=== PATIENT | female | born 1965 | race Caucasian/White ===

== ENCOUNTER 2020-02-11 06:34 | Inpatient (IN) ==
[2020-02-11 07:22] LABS: Basophils % 0.1 %; Eosinophils % 0.1 %; Hematocrit 36.9 % (35.3-44.9); Hemoglobin 12.3 g/dL (11.5-15.4); Immature Granulocytes % 0.4 % (0-4); Lymphocytes # 1.3 K/mcL (0.6-4.6); Lymphocytes % 16.1 %; Mean Corpuscular HGB Conc 33.3 g/dL (31.6-35.5); Mean Corpuscular Hemoglobin 27.8 pg (28.0-33.3); Mean Corpuscular Volume 83.3 fL (83.0-100.0); Mean Platelet Volume 9.7 fL (9.4-12.4); Monocytes # 0.4 K/mcL (0.0-1.3); Monocytes % 4.3 %; Neutrophils # 6.4 K/mcL (1.6-8.9); Platelet Count 241 K/mcL (140-400); Red Blood Count 4.43 M/mcL (3.82-4.97); Red Cell Distribution Width 13.5 % (11.5-14.5); White Blood Count 8.1 K/mcL (4.3-11.1)
[2020-02-11 07:34] LABS: Bilirubin,Urine Negative (Negative); Blood,Urine Negative (Negative); Clarity,Urine Clear (Clear); Color,Urine Yellow (Yellow); Glucose,Urine (UA) Normal (Normal); Ketones,Urine Negative (Negative); Leukocyte Esterase,Urine Negative (Negative); Nitrite,Urine Negative (Negative); Protein,Urine 30 mg/dL (Neg-Trace); Specific Gravity,Urine >= 1.030 (1.010-1.025); Urobilinogen,Urine Normal (Normal)
[2020-02-11 07:36] LABS: Amphetamine Screen,Urine Positive ng/mL (Cutoff=1000); Barbiturate Screen,Urine Negative ng/mL (Cutoff=200); Benzodiazepines Screen,Urine Negative ng/mL (Cutoff=200); Cannabinoid Screen,Urine Positive ng/mL (Cutoff = 50); Cocaine Screen,Urine Negative ng/mL (Cutoff= 300); Opiate Screen,Urine Negative ng/mL (Cutoff=300); Phencyclidine Screen,Urine Negative ng/mL (Cutoff=25)
[2020-02-11 07:37] LABS: Amorphous Sediment,Urine Few per hpf (Few)
[2020-02-11 08:18] LABS: Acetaminophen < 10 mcg/mL (10-20); BUN/Creatinine Ratio 18 (6-26); Blood Urea Nitrogen 16 mg/dL (6-20); Calcium 9.2 mg/dL (8.6-10.3); Carbon Dioxide 24 mEq/L (23-29); Chloride 109 mEq/L (98-107); Ethanol < 10 mg/dL (Less than 10); Glucose 78 mg/dL (70-105); Osmolality,Calculated 278 (280-300); Potassium 3.4 mEq/L (3.5-5.1); Salicylate < 2.5 mg/dL (15.0-30.0); Sodium 134 mEq/L (136-145); Thyroid Stimulating Hormone 3.027 mcIU/mL (0.340-5.600); eGFR For African Americans > 60 (> 60); eGFR For Non-African Americans > 60 (> 60)
[2020-02-11] MEDS ORDERED: haloperidoL 5 MG TABLET PO ONE (10:59)
[2020-02-11] MEDS ORDERED: MOM Conc 10 ML UD.LIQ PO PRN (12:41)
[2020-02-11] MEDS ORDERED: Haloperidol Lactate 5 MG/ML VIAL IM PRN (12:41)
[2020-02-11] MEDS ORDERED: Mag Hydrox/Al Hydrox/Simeth 30 ML UDC PO PRN (12:41)
[2020-02-11] MEDS ORDERED: Acetaminophen 325 MG TABLET PO PRN (12:41)
[2020-02-11] MEDS ORDERED: *HR* LORazepam 2 MG/ML VIAL IM PRN (12:41)
[2020-02-11] MEDS: haloperidoL 5 MG TABLET PO PRN (13:16)
[2020-02-11] MEDS ORDERED: clonazePAM 1 MG TABLET PO STA (20:08)
[2020-02-11] MEDS: traZODone 50 MG TABLET PO PRN (22:37)
[2020-02-11] MEDS: hydrOXYzine pamoate 25 MG CAPSULE PO PRN (22:37)
[2020-02-12] MEDS: traZODone 50 MG TABLET PO PRN (02:21)
[2020-02-12] MEDS: hydrOXYzine pamoate 25 MG CAPSULE PO PRN (02:21)
[2020-02-12] MEDS: *HR* LORazepam 1 MG TABLET PO PRN ×2 (05:15→11:19)
[2020-02-12] MEDS: haloperidoL 5 MG TABLET PO PRN ×2 (05:16→11:19)
[2020-02-12] MEDS: Nicotine 14 MG PATCH.TD24 TD SCH ×2 (09:25→13:07)
[2020-02-12] MEDS ORDERED: clonazePAM 1 MG TABLET PO SCH (09:45)
[2020-02-12] MEDS: *HR* LORazepam 1 MG TABLET PO SCH ×2 (13:07→22:31)
[2020-02-12] MEDS ORDERED: *HR* LORazepam 1 MG TABLET PO ONE (16:00)
[2020-02-12] MEDS ORDERED: risperiDONE 1 MG TABLET PO ONE (16:05)
[2020-02-12] MEDS ORDERED: risperiDONE 1 MG TABLET PO SCH (21:00)
[2020-02-13] MEDS: *HR* LORazepam 1 MG TABLET PO SCH (12:39)
[2020-02-13] MEDS: Nicotine 14 MG PATCH.TD24 TD SCH (13:07)
[2020-02-13 13:10] VITALS: BP 120/74
[2020-02-13] MEDS ORDERED: risperiDONE 1 MG TABLET PO ONE (16:00)
== END 2020-02-13 13:30 | disposition home or self-care (01) | DRG 897 ==
LOC: EMEROOARM 06:34 → 1ANU 06:34
PROVIDERS: ADMIT Psychiatry & Neurology Psychiatry; ATTEND Psychiatry & Neurology Psychiatry

== ENCOUNTER 2021-10-25 20:35 | Observation (INO) ==
[2021-10-25] MEDS ORDERED: Ketorolac 30 MG/ML VIAL IVP ONE (23:01)
[2021-10-25] MEDS ORDERED: 0.9 % Sodium Chloride 1,000 ML IVC ONE (23:01)
[2021-10-25] MEDS ORDERED: Ondansetron 4 MG/2 ML VIAL IVP ONE (23:01)
[2021-10-25] MEDS ORDERED: Isovue-370 500 ML BOTTLE IVP ONE (23:02)
[2021-10-25 23:35] LABS: Eosinophils % 0.5 %; Hematocrit 38.8 % (35.3-44.9); Hemoglobin 12.2 g/dL (11.5-15.4); Immature Granulocytes % 0.2 % (0-4); Lymphocytes # 1.9 K/mcL (0.6-4.6); Lymphocytes % 30.6 %; Mean Corpuscular HGB Conc 31.4 g/dL (31.6-35.5); Mean Corpuscular Hemoglobin 27.5 pg (28.0-33.3); Mean Corpuscular Volume 87.6 fL (83.0-100.0); Mean Platelet Volume 10.3 fL (9.4-12.4); Monocytes # 0.4 K/mcL (0.0-1.3); Monocytes % 6.3 %; Neutrophils # 3.8 K/mcL (1.6-8.9); Platelet Count 226 K/mcL (140-400); Red Blood Count 4.43 M/mcL (3.82-4.97); Red Cell Distribution Width 13.7 % (11.5-14.5); Segmented Neutrophils % 62.4 %; White Blood Count 6.1 K/mcL (4.3-11.1)
[2021-10-25 23:58] LABS: Alanine Aminotransferase 103 Units/L (7-52); Albumin 3.6 g/dL (3.5-5.7); Albumin/Globulin Ratio 1.2 (1.1-2.2); Alkaline Phosphatase 68 Units/L (34-104); Amylase 20 Units/L (29-103); Aspartate Amino Transferase 151 Units/L (13-39); BUN/Creatinine Ratio 10 (6-26); Bilirubin,Direct 0.1 mg/dL (0.0-0.2); Bilirubin,Indirect 0.3 mg/dL (0.0-1.0); Bilirubin,Total 0.4 mg/dL (0.3-1.0); Blood Urea Nitrogen 8 mg/dL (6-20); Calcium 8.4 mg/dL (8.6-10.3); Carbon Dioxide 30 mEq/L (23-29); Chloride 103 mEq/L (98-107); Glucose 98 mg/dL (70-105); Lipase 11 Units/L (11-82); Osmolality,Calculated 278 (280-300); Potassium 3.2 mEq/L (3.5-5.1); Sodium 135 mEq/L (136-145); Total Protein 6.6 g/dL (6.4-8.9); eGFR For African Americans > 60 (> 60); eGFR For Non-African Americans > 60 (> 60)
[2021-10-26 00:17] LABS: Influenza A PCR Negative (Negative); Influenza B PCR Negative (Negative); Resp. Syncytial Virus PCR Negative (Negative)
[2021-10-26 00:31] LABS: SARS-CoV-2 by PCR (In House) Positive (Negative)
[2021-10-26] MEDS ORDERED: cefTRIAXone 1,000 MG in 0.9 % Sodium Chloride Mini Bag 100 ML IVPB ONE (01:13)
[2021-10-26] MEDS ORDERED: 0.9 % Sodium Chloride 1,000 ML IVC ONE (01:13)
[2021-10-26 01:14] LABS: Bacteria,Urine Few per hpf (None-Few); Bilirubin,Urine Negative (Negative); Blood,Urine Negative (Negative); Clarity,Urine Clear (Clear); Color,Urine Light-Yellow (Yellow); Glucose,Urine (UA) Normal (Normal); Hyaline Casts,Urine Few per lpf (None Seen); Ketones,Urine Negative (Negative); Leukocyte Esterase,Urine Large (Negative); Nitrite,Urine Negative (Negative); PH,Urine 6.5 pH Units (5.0-8.0); Protein,Urine 30 mg/dL (Neg-Trace); Specific Gravity,Urine > 1.030 (1.010-1.025); Squamous Epithelial Cell,Urine Few per hpf (None-Few); Urobilinogen,Urine Normal (Normal); WBC,Urine 30-50 per hpf (0-3)
[2021-10-26] MEDS ORDERED: Ketorolac 30 MG/ML VIAL IVP ONE (01:14)
[2021-10-26] MEDS ORDERED: *HR* FentaNYL (PF) 100 MCG/2 ML VIAL IVP ONE (01:37)
[2021-10-26] MEDS ORDERED: Ondansetron 4 MG/2 ML VIAL IVP PRN (01:42)
[2021-10-26] MEDS ORDERED: Naloxone 0.4 MG/ML INJ IVP PRN (01:42)
[2021-10-26] MEDS ORDERED: *HR* HYDROmorphone (PF) 1 MG/ML SYRINGE IVP PRN (01:46)
[2021-10-26] MEDS: Ringers Solution, Lactated 1,000 ML IVC SCH ×2 (03:59→10:07)
[2021-10-26 05:11] LABS: Eosinophils # 0.1 K/mcL (0.0-0.6); Eosinophils % 1.5 %; Hematocrit 34.6 % (35.3-44.9); Immature Granulocytes % 0.2 % (0-4); Lymphocytes # 1.8 K/mcL (0.6-4.6); Lymphocytes % 43.7 %; Mean Corpuscular HGB Conc 30.6 g/dL (31.6-35.5); Mean Corpuscular Hemoglobin 27.5 pg (28.0-33.3); Mean Corpuscular Volume 89.6 fL (83.0-100.0); Mean Platelet Volume 10.6 fL (9.4-12.4); Monocytes # 0.3 K/mcL (0.0-1.3); Monocytes % 7.3 %; Neutrophils # 1.9 K/mcL (1.6-8.9); Platelet Count 205 K/mcL (140-400); Red Blood Count 3.86 M/mcL (3.82-4.97); Red Cell Distribution Width 13.9 % (11.5-14.5); Segmented Neutrophils % 47.3 %; White Blood Count 4.1 K/mcL (4.3-11.1)
[2021-10-26 05:12] LABS: Hemoglobin 10.6 g/dL (11.5-15.4)
[2021-10-26 05:13] LABS: Amphetamine Screen,Urine Negative ng/mL (Cutoff=1000); Barbiturate Screen,Urine Negative ng/mL (Cutoff=200); Benzodiazepines Screen,Urine Negative ng/mL (Cutoff=200); Cannabinoid Screen,Urine Negative ng/mL (Cutoff = 50); Cocaine Screen,Urine Negative ng/mL (Cutoff= 300); Opiate Screen,Urine Negative ng/mL (Cutoff=300); Phencyclidine Screen,Urine Negative ng/mL (Cutoff=25)
[2021-10-26 05:24] LABS: INR 1.1; Prothrombin Time 12.6 Seconds (9.4-12.1)
[2021-10-26 05:33] LABS: Alanine Aminotransferase 83 Units/L (7-52); Albumin 3.1 g/dL (3.5-5.7); Albumin/Globulin Ratio 1.2 (1.1-2.2); Alkaline Phosphatase 57 Units/L (34-104); Aspartate Amino Transferase 113 Units/L (13-39); BUN/Creatinine Ratio 11 (6-26); Bilirubin,Indirect 0.3 mg/dL (0.0-1.0); Bilirubin,Total 0.3 mg/dL (0.3-1.0); Blood Urea Nitrogen 8 mg/dL (6-20); Calcium 7.4 mg/dL (8.6-10.3); Carbon Dioxide 27 mEq/L (23-29); Chloride 107 mEq/L (98-107); Chol/HDL Ratio 2.6 (0-4.9); Cholesterol 146 mg/dL (< 200); Globulin 2.5 g/dL (2.4-3.5); Glucose 80 mg/dL (70-105); HDL Cholesterol 56 mg/dL (40-59); LDL Cholesterol,Calculated 76 mg/dL (< 100); Magnesium 1.9 mg/dL (1.6-2.6); Osmolality,Calculated 279 (280-300); Potassium 3.5 mEq/L (3.5-5.1); Sodium 136 mEq/L (136-145); Total Protein 5.6 g/dL (6.4-8.9); Triglycerides 71 mg/dL (< 150); eGFR For African Americans > 60 (> 60); eGFR For Non-African Americans > 60 (> 60)
[2021-10-26] MEDS ORDERED: Calcium Gluconate 1gm/50mL 1 GM/50 ML BAG IVPB ONE (05:50)
[2021-10-26] MEDS ORDERED: 0.9 % Sodium Chloride 500 ML IVC PRN (05:56)
[2021-10-26 05:58] LABS: Estimated Average Glucose 123 mg/dl; Hemoglobin A1C 5.9 %
[2021-10-26 08:41] LABS: Hepatitis B Surface Antigen Nonreactive (Nonreactive)
[2021-10-26] MEDS: cefTRIAXone 1,000 MG in 0.9 % Sodium Chloride Mini Bag 100 ML IVPB SCH (09:04)
[2021-10-26 09:11] LABS: Hepatitis A Antibody IgM Nonreactive (Nonreactive); Hepatitis B Core IgM Nonreactive (Nonreactive)
[2021-10-26 09:12] LABS: Hepatitis C Virus Antibody Nonreactive (Nonreactive)
[2021-10-26] MEDS ORDERED: Indomethacin 50 MG SUPP.RECT RC ONE (15:30)
[2021-10-26] MEDS ORDERED: *HR* Midazolam HCl 2 MG/2 ML VIAL ONE (15:54)
[2021-10-26] MEDS ORDERED: *HR* Succinylcholine 200 MG/10 ML VIAL IVP ONE (15:54)
[2021-10-26] MEDS ORDERED: Lidocaine -MPF 2% 5 ML VIAL ONE (15:54)
[2021-10-26] MEDS ORDERED: Ondansetron 4 MG/2 ML VIAL ONE (15:54)
[2021-10-26] MEDS ORDERED: *HR* Rocuronium Bromide 50 MG/5 ML VIAL ONE (15:54)
[2021-10-26] MEDS ORDERED: Lidocaine HCL 4 ML Topical Solution (Laryng-O-Jet Kit Sterile Pak) TP ONE (15:54)
[2021-10-26] MEDS ORDERED: *HR* Propofol 200 MG/20 ML VIAL IVP ONE (15:54)
[2021-10-26] MEDS ORDERED: *HR* FentaNYL (PF) 100 MCG/2 ML VIAL ONE (15:54)
[2021-10-27 02:53] LABS: Basophils % 0.2 %; Eosinophils % 0.2 %; Hematocrit 32.6 % (35.3-44.9); Hemoglobin 10.6 g/dL (11.5-15.4); Immature Granulocytes % 0.4 % (0-4); Lymphocytes # 1.1 K/mcL (0.6-4.6); Lymphocytes % 20.4 %; Mean Corpuscular HGB Conc 32.5 g/dL (31.6-35.5); Mean Corpuscular Hemoglobin 28.4 pg (28.0-33.3); Mean Corpuscular Volume 87.4 fL (83.0-100.0); Mean Platelet Volume 10.9 fL (9.4-12.4); Monocytes # 0.2 K/mcL (0.0-1.3); Monocytes % 4.5 %; Platelet Count 213 K/mcL (140-400); Red Blood Count 3.73 M/mcL (3.82-4.97); Red Cell Distribution Width 13.7 % (11.5-14.5); Segmented Neutrophils % 74.3 %; White Blood Count 5.4 K/mcL (4.3-11.1)
[2021-10-27 03:19] LABS: Alanine Aminotransferase 64 Units/L (7-52); Albumin/Globulin Ratio 1.2 (1.1-2.2); Alkaline Phosphatase 60 Units/L (34-104); Aspartate Amino Transferase 67 Units/L (13-39); BUN/Creatinine Ratio 18 (6-26); Bilirubin,Total 0.2 mg/dL (0.3-1.0); Blood Urea Nitrogen 12 mg/dL (6-20); Calcium 7.9 mg/dL (8.6-10.3); Carbon Dioxide 24 mEq/L (23-29); Chloride 110 mEq/L (98-107); Globulin 2.5 g/dL (2.4-3.5); Glucose 145 mg/dL (70-105); Osmolality,Calculated 282 (280-300); Potassium 4.3 mEq/L (3.5-5.1); Sodium 135 mEq/L (136-145); Total Protein 5.5 g/dL (6.4-8.9); eGFR For African Americans > 60 (> 60); eGFR For Non-African Americans > 60 (> 60)
[2021-10-27 03:28] VITALS: O2SAT 93
[2021-10-27 07:39] VITALS: BP 124/77; PULSE 75; TEMP 97.6
[2021-10-27] MEDS: cefTRIAXone 1,000 MG in 0.9 % Sodium Chloride Mini Bag 100 ML IVPB SCH (08:28)
== END 2021-10-27 13:42 | disposition home or self-care (01) ==
LOC: 3BNU 20:35 → EMEROOARM 20:35 → SUATTDRO 10-26 01:28 → 3BNU 10-26 03:02
PROVIDERS: ADMIT Student in an Organized Health Care Education/Training Program; ATTEND Internal Medicine